=== PATIENT | male | born 1990 | race Caucasian/White ===

== ENCOUNTER 2016-09-30 13:41 | Emergency (ER) | payer BC, OTHER ==
[~2016-09-30] VITALS: Ht 170.2 cm; Wt 95.2 kg
[2016-09-30] MEDS ORDERED: IBUPROFEN600 MG PO (17:13)
[2016-09-30] MEDS ORDERED: NORCO 5-325 TA1 EACH PO (17:13)
[2016-09-30] MEDS ORDERED: CRUTCH1 EACH (17:17)
== END 2016-09-30 13:55 | disposition home or self-care (01) ==
LOC: ED 13:41
DX: Z00.8 Encounter for other general examination (principal)

== ENCOUNTER 2016-09-30 15:31 | Emergency (ER) | payer BC, OTHER ==
[~2016-09-30] VITALS: Ht 170.2 cm; Wt 95.2 kg
[2016-09-30] MEDS ORDERED: IBUPROFEN600 MG PO (17:13)
[2016-09-30] MEDS ORDERED: NORCO 5-325 TA1 EACH PO (17:13)
[2016-09-30] MEDS ORDERED: CRUTCH1 EACH (17:17)
== END 2016-09-30 17:40 | disposition home or self-care (01) ==
LOC: ED 15:31
DX: S83.92XA Sprain of unspecified site of left knee, initial encounter (principal); S93.402A Sprain of unspecified ligament of left ankle, initial encounter; Z88.1 Allergy status to other antibiotic agents; Z95.2 Presence of prosthetic heart valve; Z98.890 Other specified postprocedural states; W11.XXXA Fall on and from ladder, initial encounter
CPT/HCPCS: 73560; 73610; 73630; 99283

== ENCOUNTER 2019-09-06 18:18 | Emergency (ER) | payer OTHER, BC ==
[~2019-09-06] VITALS: Ht 170.2 cm; Wt 99.8 kg
[~2019-09-06 18:18] MED LIST: CRUTCH1 EACH; IBUPROFEN600 MG PO; NORCO 5-325 TA1 EACH PO
[2019-09-06] MEDS ORDERED: DICLOFENAC SODI75 MG PO (23:16)
[2019-09-06] MEDS ORDERED: CYCLOBENZAPRINE10 MG PO (23:16)
== END 2019-09-06 23:29 | disposition home or self-care (01) ==
LOC: ED 18:18
DX: M54.5 Low back pain (principal); Z88.8 Allergy status to other drugs, medicaments and biological substances
CPT/HCPCS: 99283